=== PATIENT | female | born 1955 | race Caucasian/White ===

== ENCOUNTER → 2016-04-18 | Outpatient (CLI) | payer OTHER ==
[~2016-04-18] MED LIST: ALEVE220 MG PO; AUGMENTIN 875875 MG PO; CENTRUM SILVER1 EAC2 PO; FLOMAX0.4 MG PO; IRON325 PO
== END ==
LOC: RAD 11:19
DX: N63 Unspecified lump in breast (principal)

== ENCOUNTER 2016-04-25 08:18 | Inpatient (IN) | payer OTHER ==
[~2016-04-25] VITALS: Ht 160 cm; Wt 48.5 kg
[2016-04-25 08:26] VITALS: BP 104/62
[2016-04-25 09:00] LABS: HEMATOCRIT 31.3 % (37.0-47.0); HEMOGLOBIN 10.2 gm/dL (12.0-15.0); MCH 29.3 pg (26.0-34.0); MCHC 32.6 % (28.0-37.0); MCV 89.8 fL (80.0-100.0); PLATELET COUNT 312 thou/uL (150-400); RBC 3.49 mil/uL (4.20-5.00); RDW 14.7 % (10.5-14.5); WBC 13.2 thou/uL (4.0-11.0)
[2016-04-25 09:02] LABS: MANUAL DIFF YES
[2016-04-25 09:06] LABS: CALCIUM 8.7 mg/dL (8.5-10.1); CREATININE 0.8 mg/dL (0.6-1.3); POTASSIUM 3.8 mmol/L (3.5-5.1)
[2016-04-25 09:12] LABS: ALBUMIN 2.1 g/dL (3.4-5.0); DIRECT BILIRUBIN 0.2 mg/dL (<0.1-0.3); TOTAL BILIRUBIN 0.7 mg/dL (<0.1-1.0); TOTAL PROTEIN 6.2 g/dL (6.4-8.2)
[2016-04-25 09:56] LABS: ABSOLUTE NEUTROPHILS 11.2 thou/uL (1.4-8.2); TOTAL CELL COUNT 100
[2016-04-25 09:57] LABS: ANISOCYTOSIS SLIGHT
[2016-04-25 12:28] VITALS: BP 110/68
[2016-04-25 14:34] VITALS: BP 96/76
[2016-04-25 14:42] LABS: INR 1.1; PROTIME 11.2 Seconds (9.3-11.4)
[2016-04-25 15:20] VITALS: BP 105/61
[2016-04-25 20:00] VITALS: BP 115/72
[2016-04-26 02:10] VITALS: BP 115/72
[2016-04-26 04:30] VITALS: BP 99/67
[2016-04-26 06:20] LABS: HEMATOCRIT 28.4 % (37.0-47.0); HEMOGLOBIN 9.2 gm/dL (12.0-15.0); MCH 29.9 pg (26.0-34.0); MCHC 32.3 % (28.0-37.0); MCV 92.6 fL (80.0-100.0); RBC 3.07 mil/uL (4.20-5.00); RDW 14.7 % (10.5-14.5)
[2016-04-26 06:36] LABS: ALBUMIN 1.7 g/dL (3.4-5.0); CALCIUM 7.6 mg/dL (8.5-10.1); CREATININE 0.8 mg/dL (0.6-1.3); MAGNESIUM 1.9 mg/dL (1.8-2.4); TOTAL BILIRUBIN 0.3 mg/dL (<0.1-1.0); TOTAL PROTEIN 5.3 g/dL (6.4-8.2)
[2016-04-26 06:46] LABS: POTASSIUM 3.8 mmol/L (3.5-5.1)
[2016-04-26 07:54] VITALS: BP 101/62
[2016-04-26 16:55] VITALS: BP 110/69
[2016-04-26 20:00] VITALS: BP 107/73
[2016-04-27 06:01] LABS: HEMATOCRIT 26.8 % (37.0-47.0); HEMOGLOBIN 8.8 gm/dL (12.0-15.0); MCH 29.9 pg (26.0-34.0); MCHC 32.7 % (28.0-37.0); MCV 91.6 fL (80.0-100.0); PLATELET COUNT 275 thou/uL (150-400); RBC 2.93 mil/uL (4.20-5.00); WBC 9.7 thou/uL (4.0-11.0)
[2016-04-27 06:24] LABS: MANUAL DIFF YES
[2016-04-27 06:30] LABS: CALCIUM 7.6 mg/dL (8.5-10.1); CREATININE 0.8 mg/dL (0.6-1.3); POTASSIUM 3.4 mmol/L (3.5-5.1)
[2016-04-27 07:48] VITALS: BP 96/55
[2016-04-27 08:31] LABS: ABSOLUTE NEUTROPHILS 7.9 thou/uL (1.4-8.2); TOTAL CELL COUNT 100
[2016-04-27 15:52] VITALS: BP 102/69
[2016-04-27 20:00] VITALS: BP 111/72
[2016-04-28 04:00] VITALS: BP 98/61
[2016-04-28 05:41] LABS: HEMATOCRIT 26.4 % (37.0-47.0); HEMOGLOBIN 8.7 gm/dL (12.0-15.0); MCV 90.9 fL (80.0-100.0); PLATELET COUNT 283 thou/uL (150-400); RBC 2.91 mil/uL (4.20-5.00); RDW 14.7 % (10.5-14.5); WBC 10.3 thou/uL (4.0-11.0)
[2016-04-28 05:43] LABS: MANUAL DIFF YES
[2016-04-28 05:55] LABS: CALCIUM 7.3 mg/dL (8.5-10.1); CREATININE 0.8 mg/dL (0.6-1.3); POTASSIUM 3.4 mmol/L (3.5-5.1)
[2016-04-28 07:31] LABS: ABSOLUTE NEUTROPHILS 8.7 thou/uL (1.4-8.2); ANISOCYTOSIS 1+; TOTAL CELL COUNT 100
[2016-04-28 07:45] VITALS: BP 111/68
[2016-04-28] MEDS ORDERED: CENTRUM SILVER1 EAC2 PO (09:45)
[2016-04-28] MEDS ORDERED: AUGMENTIN 875875 MG PO (09:45)
[2016-04-28] MEDS ORDERED: IRON325 PO (09:45)
[2016-04-28] MEDS ORDERED: FLOMAX0.4 MG PO (10:01)
[2016-04-28 10:31] VITALS: BP 111/68
[2016-04-28 12:39] VITALS: BP 111/68
[2016-04-29 16:25] VITALS: BP 111/68
[2016-04-29 16:37] VITALS: BP 111/68
[2016-05-05] MEDS ORDERED: ALEVE220 MG PO (08:37)
== END 2016-04-28 14:35 | disposition home health service (06) | DRG 391 ==
LOC: ER 08:18 → 4E 10:24 → EROBS 10:24 → 4E 12:21
PROVIDERS: Emergency Medicine; Family Medicine; Hospitalist
DX: A09 Infectious gastroenteritis and colitis, unspecified (principal); N17.0 Acute kidney failure with tubular necrosis; E43 Unspecified severe protein-calorie malnutrition; N13.2 Hydronephrosis with renal and ureteral calculous obstruction; E86.0 Dehydration; Z85.3 Personal history of malignant neoplasm of breast; Z98.890 Other specified postprocedural states; Z88.8 Allergy status to other drugs, medicaments and biological substances; Z80.3 Family history of malignant neoplasm of breast; Z80.0 Family history of malignant neoplasm of digestive organs; Z82.49 Family history of ischemic heart disease and other diseases of the circulatory system
CPT/HCPCS: 10783

== ENCOUNTER → 2016-05-05 | Outpatient (CLI) | payer OTHER ==
[~2016-05-05] VITALS: Ht 160 cm; Wt 47.6 kg
--- NOTE | ~2016-05-05 | S ---
[facility] [place] [address] SURGICAL PATH RPT PROCEDURE Name: EDWIN DELVALLE Room #: REG TAMERA Cole.#: [id number] Admission: 05/05/16 Date of : 53 Discharge: Report #: [id number] Path Case #: [id number] PATHOLOGY REPORT COLLECTION DATE: 05/05/2016 RECEIVED DATE: 05/05/2016 SUBMITTING PHYS: Dr. Lauren Bansal OTHER PHYS: Dr. Tomy Márquez SPECIMEN(S) RECEIVED: A.Hip - R * * * * * * * * * * * * FINAL DIAGNOSIS: Bone, lytic right hip lesion, needle core biopsy: - METASTATIC MODERATELY DIFFERENTIATED ADENOCARCINOMA. (PLEASE SEE COMMENT) COMMENT: ER/ID and HER-2/padmini markers are ordered on block A1 as requested. ER: strong 3+ nuclear reactivity in 95 percent of tumor cells (no internal controls present). ID: strong 3+ nuclear reactivity in 90 percent of tumor cells (no internal controls present). Her-2/padmini: negative or 1+ membranous reactivity present. Co-review: Dr. Geraldine Ca. The findings are relayed to Dr. Lauren Bansal at approximately 10:45 a.m. on 05/06/16. (IUV:csd; d/t: 05/06/2016) PATHOLOGIST: Zina Casillas M.D. REPORT ELECTRONICALLY SIGNED BY: Zina Casillas M.D. DATE/TIME: 05/06/2016 13:19 * * * * * * * * * * * * GROSS PATHOLOGY: Received in formalin labeled "Joe Downing," are four distinct needle cores of vo soft tissue ranging from 1.1 to 1.6 cm in length, which are submitted entirely in cassette A1. The cold ischemic time is not provided. The total formalin fixation time is 9 hours and 15 minutes. (CAA; 05/05/2016) CLINICAL HISTORY: None provided [facility] [place] [address] SURGICAL PATH RPT PROCEDURE Name: EDWIN DELVALLE [facility]#: [id number] Admission: 05/05/16 Date of : 53 Discharge: Report #: [id number] Path Case #: [id number] INITIAL CPT CODE(S): 40655, 85333, 93882, 11492 Professional services performed by [facility] at [address] , [place] [address] Technical services performed by [facility] at [address] [place] [address], [facility] [address] [address]. [facility] [place] [address] PHONE: [phone] DIRECTOR: Mariusz Lee M.D. * * * END OF REPORT * * *
[2016-05-05 08:18] LABS: HEMATOCRIT 24.8 % (37.0-47.0); HEMOGLOBIN 8.2 gm/dL (12.0-15.0); MCH 30.1 pg (26.0-34.0); MCHC 33.2 % (28.0-37.0); MCV 90.6 fL (80.0-100.0); RBC 2.74 mil/uL (4.20-5.00); RDW 15.1 % (10.5-14.5); WBC 11.1 thou/uL (4.0-11.0)
[2016-05-05 08:26] LABS: CALCIUM 8.6 mg/dL (8.5-10.1); CREATININE 1.2 mg/dL (0.6-1.3); POTASSIUM 4.7 mmol/L (3.5-5.1)
[2016-05-05 08:28] VITALS: BP 128/69
[2016-05-05 11:00] VITALS: BP 117/69
[2016-05-05 11:15] VITALS: BP 101/57
== END | disposition home or self-care (01) ==
LOC: CAT 07:23
PROVIDERS: Internal Medicine Hematology & Oncology
DX: C79.51 Secondary malignant neoplasm of bone (principal); C50.919 Malignant neoplasm of unspecified site of unspecified female breast; D72.825 Bandemia

== ENCOUNTER → 2018-09-28 | Outpatient (CLI) | payer OTHER | LOC: HYPER 09-27 08:04 | DX: T81.89XD Other complications of procedures, not elsewhere classified, subsequent encounter (principal); C50.919 Malignant neoplasm of unspecified site of unspecified female breast; L98.492 Non-pressure chronic ulcer of skin of other sites with fat layer exposed; Y83.8 Other surgical procedures as the cause of abnormal reaction of the patient, or of later complication, without mention of misadventure at the time of the procedure ==

== ENCOUNTER → 2018-10-12 | Outpatient (CLI) | payer OTHER | LOC: HYPER 06:35 | DX: T81.89XD Other complications of procedures, not elsewhere classified, subsequent encounter (principal); L98.492 Non-pressure chronic ulcer of skin of other sites with fat layer exposed; C50.911 Malignant neoplasm of unspecified site of right female breast; Y83.8 Other surgical procedures as the cause of abnormal reaction of the patient, or of later complication, without mention of misadventure at the time of the procedure ==

== ENCOUNTER → 2018-11-02 | Outpatient (CLI) | payer OTHER | LOC: HYPER 06:29 | DX: T81.89XD Other complications of procedures, not elsewhere classified, subsequent encounter (principal); L98.492 Non-pressure chronic ulcer of skin of other sites with fat layer exposed; C50.919 Malignant neoplasm of unspecified site of unspecified female breast; Y83.8 Other surgical procedures as the cause of abnormal reaction of the patient, or of later complication, without mention of misadventure at the time of the procedure ==

== ENCOUNTER → 2018-11-23 | Outpatient (CLI) | payer OTHER | LOC: HYPER 06:45 | DX: T81.89XD Other complications of procedures, not elsewhere classified, subsequent encounter (principal); L98.492 Non-pressure chronic ulcer of skin of other sites with fat layer exposed; C50.919 Malignant neoplasm of unspecified site of unspecified female breast; Y83.8 Other surgical procedures as the cause of abnormal reaction of the patient, or of later complication, without mention of misadventure at the time of the procedure ==

== ENCOUNTER → 2018-12-21 | Outpatient (CLI) | payer OTHER | LOC: HYPER 06:45 | DX: T81.89XD Other complications of procedures, not elsewhere classified, subsequent encounter (principal); L98.492 Non-pressure chronic ulcer of skin of other sites with fat layer exposed; C50.919 Malignant neoplasm of unspecified site of unspecified female breast; Y83.8 Other surgical procedures as the cause of abnormal reaction of the patient, or of later complication, without mention of misadventure at the time of the procedure ==

== ENCOUNTER → 2019-01-11 | Outpatient (CLI) | payer OTHER | LOC: HYPER 07:53 | DX: T81.89XD Other complications of procedures, not elsewhere classified, subsequent encounter (principal); L98.492 Non-pressure chronic ulcer of skin of other sites with fat layer exposed; C50.919 Malignant neoplasm of unspecified site of unspecified female breast; Y83.8 Other surgical procedures as the cause of abnormal reaction of the patient, or of later complication, without mention of misadventure at the time of the procedure ==

== ENCOUNTER → 2019-02-01 | Outpatient (CLI) | payer OTHER | LOC: HYPER 09:30 | DX: T81.89XD Other complications of procedures, not elsewhere classified, subsequent encounter (principal); L98.492 Non-pressure chronic ulcer of skin of other sites with fat layer exposed; C50.919 Malignant neoplasm of unspecified site of unspecified female breast; Y83.8 Other surgical procedures as the cause of abnormal reaction of the patient, or of later complication, without mention of misadventure at the time of the procedure ==

== ENCOUNTER → 2019-02-15 | Outpatient (CLI) | payer OTHER | LOC: HYPER 07:17 | DX: T81.89XD Other complications of procedures, not elsewhere classified, subsequent encounter (principal); C50.919 Malignant neoplasm of unspecified site of unspecified female breast; L98.492 Non-pressure chronic ulcer of skin of other sites with fat layer exposed; Y83.8 Other surgical procedures as the cause of abnormal reaction of the patient, or of later complication, without mention of misadventure at the time of the procedure ==

== ENCOUNTER → 2019-03-16 | Outpatient (CLI) | payer OTHER | LOC: HYPER 07:38 | DX: T81.89XD Other complications of procedures, not elsewhere classified, subsequent encounter (principal); C50.919 Malignant neoplasm of unspecified site of unspecified female breast; L98.492 Non-pressure chronic ulcer of skin of other sites with fat layer exposed; Y83.8 Other surgical procedures as the cause of abnormal reaction of the patient, or of later complication, without mention of misadventure at the time of the procedure ==

== ENCOUNTER → 2019-04-18 | Outpatient (CLI) | payer OTHER | LOC: HYPER 08:43 | DX: T81.89XD Other complications of procedures, not elsewhere classified, subsequent encounter (principal); C50.919 Malignant neoplasm of unspecified site of unspecified female breast; L98.492 Non-pressure chronic ulcer of skin of other sites with fat layer exposed; Y83.8 Other surgical procedures as the cause of abnormal reaction of the patient, or of later complication, without mention of misadventure at the time of the procedure ==

== ENCOUNTER → 2019-05-19 | Outpatient (CLI) | payer OTHER | LOC: HYPER 09:14 | DX: T81.89XD Other complications of procedures, not elsewhere classified, subsequent encounter (principal); L98.492 Non-pressure chronic ulcer of skin of other sites with fat layer exposed; C50.911 Malignant neoplasm of unspecified site of right female breast; Y83.8 Other surgical procedures as the cause of abnormal reaction of the patient, or of later complication, without mention of misadventure at the time of the procedure ==

== ENCOUNTER → 2019-06-16 | Outpatient (CLI) | payer OTHER | LOC: HYPER 11:31 | DX: T81.89XD Other complications of procedures, not elsewhere classified, subsequent encounter (principal); L98.492 Non-pressure chronic ulcer of skin of other sites with fat layer exposed; C50.911 Malignant neoplasm of unspecified site of right female breast; Y83.8 Other surgical procedures as the cause of abnormal reaction of the patient, or of later complication, without mention of misadventure at the time of the procedure ==

== ENCOUNTER → 2019-07-14 | Outpatient (CLI) | payer OTHER | LOC: HYPER 07-13 15:36 | DX: T81.89XD Other complications of procedures, not elsewhere classified, subsequent encounter (principal); L98.492 Non-pressure chronic ulcer of skin of other sites with fat layer exposed; C50.919 Malignant neoplasm of unspecified site of unspecified female breast; M81.0 Age-related osteoporosis without current pathological fracture ==

== ENCOUNTER → 2019-08-04 | Outpatient (CLI) | payer OTHER | LOC: HYPER 09:17 | DX: T81.89XD Other complications of procedures, not elsewhere classified, subsequent encounter (principal); L98.492 Non-pressure chronic ulcer of skin of other sites with fat layer exposed; C50.919 Malignant neoplasm of unspecified site of unspecified female breast; Y83.8 Other surgical procedures as the cause of abnormal reaction of the patient, or of later complication, without mention of misadventure at the time of the procedure ==

== ENCOUNTER → 2019-09-01 | Outpatient (CLI) | payer OTHER | LOC: HYPER 08:13 | DX: T81.89XD Other complications of procedures, not elsewhere classified, subsequent encounter (principal); L98.492 Non-pressure chronic ulcer of skin of other sites with fat layer exposed; C50.919 Malignant neoplasm of unspecified site of unspecified female breast; M81.0 Age-related osteoporosis without current pathological fracture; Y83.8 Other surgical procedures as the cause of abnormal reaction of the patient, or of later complication, without mention of misadventure at the time of the procedure ==

== ENCOUNTER → 2019-09-29 | Outpatient (CLI) | payer OTHER | LOC: HYPER 08:42 | PROVIDERS: ATTEND Emergency Medicine | DX: T81.89XD Other complications of procedures, not elsewhere classified, subsequent encounter (principal); L98.492 Non-pressure chronic ulcer of skin of other sites with fat layer exposed; C50.911 Malignant neoplasm of unspecified site of right female breast; Y83.8 Other surgical procedures as the cause of abnormal reaction of the patient, or of later complication, without mention of misadventure at the time of the procedure ==

== ENCOUNTER → 2019-11-16 | Outpatient (CLI) | payer OTHER | LOC: HYPER 07:56 | PROVIDERS: ATTEND Emergency Medicine | DX: T81.89XD Other complications of procedures, not elsewhere classified, subsequent encounter (principal); L98.492 Non-pressure chronic ulcer of skin of other sites with fat layer exposed; L84 Corns and callosities; C50.911 Malignant neoplasm of unspecified site of right female breast; Y83.8 Other surgical procedures as the cause of abnormal reaction of the patient, or of later complication, without mention of misadventure at the time of the procedure ==

== ENCOUNTER → 2019-12-14 | Outpatient (CLI) | payer OTHER | LOC: HYPER 09:10 | PROVIDERS: ATTEND Emergency Medicine | DX: T81.89XD Other complications of procedures, not elsewhere classified, subsequent encounter (principal); L98.492 Non-pressure chronic ulcer of skin of other sites with fat layer exposed; C50.911 Malignant neoplasm of unspecified site of right female breast; Y83.8 Other surgical procedures as the cause of abnormal reaction of the patient, or of later complication, without mention of misadventure at the time of the procedure ==

== ENCOUNTER → 2020-01-26 | Outpatient (CLI) | payer OTHER | LOC: HYPER 08:52 | PROVIDERS: ATTEND Emergency Medicine | DX: T81.89XD Other complications of procedures, not elsewhere classified, subsequent encounter (principal); L98.492 Non-pressure chronic ulcer of skin of other sites with fat layer exposed; C50.911 Malignant neoplasm of unspecified site of right female breast; L84 Corns and callosities; Y83.8 Other surgical procedures as the cause of abnormal reaction of the patient, or of later complication, without mention of misadventure at the time of the procedure ==

== ENCOUNTER → 2020-02-23 | Outpatient (CLI) | payer OTHER | LOC: HYPER 08:37 | PROVIDERS: ATTEND Emergency Medicine | DX: T81.89XD Other complications of procedures, not elsewhere classified, subsequent encounter (principal); L98.492 Non-pressure chronic ulcer of skin of other sites with fat layer exposed; C50.911 Malignant neoplasm of unspecified site of right female breast; R21 Rash and other nonspecific skin eruption; Y83.8 Other surgical procedures as the cause of abnormal reaction of the patient, or of later complication, without mention of misadventure at the time of the procedure ==